=== PATIENT | female | born 1960 | race Caucasian/White ===

== ENCOUNTER 2021-04-11 10:35 | Inpatient (IN) | payer OTHER ==
[2021-04-11] VITALS (315 sets, daily range): BP systolic 119; BP diastolic 72–92; PULSE 107–114; TEMP 98.2–98.4; O2SAT 93–100
[~2021-04-11] VITALS: Ht 160 cm; Wt 53.3 kg
[~2021-04-11 10:35] MED LIST: ACETAMINOPHEN W1 TA6 PO; CLARITIN10 MG PO
[2021-04-11 11:14] LABS: BASO # 0.1 (0.0-0.2); BASO % 0.6 % (0.0-2.0); EOS # 0.1 (0.0-0.7); EOS % 0.4 % (0-4.0); GRAN # 15.3 (1.4-6.5); HEMOGLOBIN 10.2 g/dl (12.5-16.0); MEAN CELL VOLUME 96 fl (80.0-100.0); MEAN CORPUSCULAR HEMOGLOBIN 32 pg (27.0-31.0); MEAN CORPUSCULAR HGB CONC 33 g/dl (33.0-37.0); MEAN PLATELET VOLUME 10.3 fl (7.4-10.4); MONO # 1.2 (0.1-0.6); PLATELET COUNT 358 K/mm3 (130-400); RED BLOOD COUNT 3.22 M/mm3 (4.10-5.30); REDCELL DISTRIBUTION WIDTH-CV 12.7 % (11.5-14.5)
[2021-04-11 11:15] LABS: HEMATOCRIT 30.8 % (37.0-47.0)
[2021-04-11 11:26] LABS: ALANINE AMINOTRANSFERASE 16 U/L (4-34); ALBUMIN 3.9 gm/dL (3.5-5.0); ALKALINE PHOSPHATASE 61 U/L (50-136); ANION GAP 8 mmol/L (7-16); AST,SGOT 27 U/L (15-37); BILIRUBIN,TOTAL 0.5 mg/dL (0.0-1.0); BLOOD UREA NITROGEN 43 mg/dL (7-17); CALCIUM 8.4 mg/dL (8.4-10.2); CARBON DIOXIDE 21 mmol/L (22-30); CHLORIDE 105 mmol/L (98-107); GLUCOSE 160 mg/dL (74-106); LIPASE 63 U/L (23-300); POTASSIUM 4.1 mmol/L (3.4-5.0); SODIUM 134 mmol/L (137-145); TOTAL PROTEIN 6.7 gm/dL (6.4-8.2)
[2021-04-11 11:29] LABS: C-REACTIVE PROTEIN < 0.5 mg/dL (0.0-0.9)
--- NOTE | 2021-04-11 14:05 | NUR ---
RECEIVED REPORT FROM HAIM CHE IN ER. AWAITING ARRIVAL OF PT TO ICU 6.
--- NOTE | 2021-04-11 14:15 | NUR ---
PT ARRIVES TO ICU 6 VIA STRETCHER ON RA. PT AMBULATES SELF TO ICU BED WITHOUT DIFFICULTIES. PLACED ON BEDSIDE CONTINUOUS MONTIOR. VSS. CALL LIGHT WITHIN REACH. FAMILY BROUGHT TO BEDSIDE.
[2021-04-11] MEDS ORDERED: ENDOMETRIN100 MG VG (14:29)
[2021-04-11] MEDS ORDERED: PREMARIN 225 MG/VIAL IJ (14:29)
[2021-04-11] MEDS ORDERED: CYANOCOBAL1000 MCG/M IM (14:31)
[2021-04-11] MEDS ORDERED: ALLERPLEX PO (14:33)
[2021-04-11 18:15] LABS: HEMATOCRIT 23.5 % (37.0-47.0); HEMOGLOBIN 7.6 g/dl (12.5-16.0)
--- NOTE | 2021-04-11 18:27 | NUR ---
NOTIFIED JERICHO NAIR ABOUT PT'S HGB 7.6 NOW. VSS AND PT'S DENIES DIZZINESS AT THIS TIME. PROVIDER REQUESTS H&H REDRAW AT 2200 TONIGHT.
[2021-04-11 18:39] LABS: COLLECTION METHOD CLEAN CATCH
[2021-04-11 18:45] LABS: MUCOUS Present /lpf; PH 5 (5-8); SQUAMOUS EPITHELIAL 0-2 /hpf; URINE APPEARANCE Clear; URINE BACTERIA None Seen /hpf; URINE BILIRUBIN Negative (NEGATIVE); URINE BLOOD Negative (NEGATIVE); URINE COLOR Straw; URINE GLUCOSE Negative (NEGATIVE); URINE KETONE Negative (NEGATIVE); URINE LEUKOCYTE ESTERASE Negative (NEGATIVE); URINE NITRATE Negative (NEGATIVE); URINE PROTEIN(semi-quant) Negative (NEGATIVE); URINE RBC 0-2 /hpf; URINE UROBILINOGEN Negative (NEGATIVE)
--- NOTE | 2021-04-11 19:39 | NUR ---
Received report from HAIM Salazar. All medications verified and all questions answered. Patient resting in bed visiting with daughter and at bedside. VSS. No concerns or complaints noted from patient at this time. Will resume care at this time.
[2021-04-11 22:47] LABS: HEMOGLOBIN 7.5 g/dl (12.5-16.0)
[2021-04-12] VITALS (359 sets, daily range): BP systolic 105–135; BP diastolic 54–75; PULSE 93–110; TEMP 98–98.5; O2SAT 84–100
[2021-04-12 04:00] LABS: BASO # 0.1 (0.0-0.2); BASO % 0.5 % (0.0-2.0); EOS # 0.1 (0.0-0.7); EOS % 0.8 % (0-4.0); GRAN # 10.5 (1.4-6.5); GRAN % 79.9 % (42.2-75.2); LYMPH # 1.6 (1.2-3.4); LYMPH % 12.3 % (20.0-51.0); MEAN CELL VOLUME 96 fl (80.0-100.0); MEAN CORPUSCULAR HGB CONC 33 g/dl (33.0-37.0); MEAN PLATELET VOLUME 9.8 fl (7.4-10.4); MONO # 0.8 (0.1-0.6); RED BLOOD COUNT 2.24 M/mm3 (4.10-5.30); REDCELL DISTRIBUTION WIDTH-CV 12.8 % (11.5-14.5)
[2021-04-12 04:01] LABS: HEMATOCRIT 21.5 % (37.0-47.0); HEMOGLOBIN 7.1 g/dl (12.5-16.0); MEAN CORPUSCULAR HEMOGLOBIN 32 pg (27.0-31.0)
[2021-04-12 04:04] LABS: PLATELET COUNT 238 K/mm3 (130-400)
[2021-04-12 04:13] LABS: CALCIUM 7.9 mg/dL (8.4-10.2); CREATININE, serum 0.64 (0.52-1.25); MAGNESIUM 1.6 mg/dL (1.6-2.3); POTASSIUM 3.5 mmol/L (3.4-5.0)
--- NOTE | 2021-04-12 07:05 | NUR ---
RECEIVED REPORT FROM HAIM COATES. PT RESTING EASILY ON RA. VSS. CALL LIGHT WITHIN REACH.
[2021-04-12 08:53] LABS: HEMATOCRIT 22.4 % (37.0-47.0); HEMOGLOBIN 7.4 g/dl (12.5-16.0)
--- NOTE | 2021-04-12 10:58 | NUR ---
Water Supervisor attended clinical rounds with the team. The patient's daughter, Missy present. Following rounds, SW completed intake. The patient lives in [place] with her , Gerard. The patient denies DME use and is independent. The patient's PCP is Dr. Avitia and patient receives medications from [facility] pharmacy. The patient does not have advanced directives in the EMR but states they are complete and designate Gerard. The patient plans to return home at discharge with no concerns about doing so. *Discharge disposition: Home
--- NOTE | 2021-04-12 12:15 | NUR ---
PT TO EGD AT 1130. REPORT RECEIVED FROM HAIM SKY IN ENDO. PT ARRIVES BACK TO ICU 6 VIA STRETCHER AT 1215. AMBULATES SELF BACK TO ICU BED. VSS. FAMILY AT BEDSIDE. NOTIFIED DR PRO OF FINDINGS. STATES WILL PLACE DIET AND TRANSFER ORDERS.
--- NOTE | 2021-04-12 13:24 | NUR ---
Initial visit; Patient thanked Display And Banner Designer for looking in on her, visiting and offering God's blessings.
--- NOTE | 2021-04-12 14:10 | NUR ---
REPORT GIVEN TO HAIM MASON. PT TO TRANSFER VIA TO [facility]. ALL PERSONAL BELONGINGS SENT WITH PT.S
[2021-04-12 18:27] LABS: HEMATOCRIT 23.3 % (37.0-47.0); HEMOGLOBIN 7.6 g/dl (12.5-16.0)
--- NOTE | 2021-04-12 19:02 | NUR ---
Received report from Elan. Patient awake in bed. Daughter at bedside. Patient informed of latest hemoglobin. Denies needs at this time.
[2021-04-13 04:05] VITALS: BP 124/68; PULSE 91; TEMP 98.1
--- NOTE | 2021-04-13 06:19 | NUR ---
Patient had uneventful night. She was asleep most of the night. She denies pain.
[2021-04-13 06:33] LABS: BASO % 0.4 % (0.0-2.0); EOS # 0.2 (0.0-0.7); EOS % 2.3 % (0-4.0); GRAN # 8.2 (1.4-6.5); GRAN % 78.9 % (42.2-75.2); LYMPH # 1.1 (1.2-3.4); LYMPH % 10.4 % (20.0-51.0); MEAN CELL VOLUME 99 fl (80.0-100.0); MEAN CORPUSCULAR HGB CONC 32 g/dl (33.0-37.0); MEAN PLATELET VOLUME 10.5 fl (7.4-10.4); MONO # 0.8 (0.1-0.6); MONO % 7.4 % (1.7-9.3); PLATELET COUNT 246 K/mm3 (130-400)
[2021-04-13 06:38] LABS: HEMATOCRIT 20.7 % (37.0-47.0); HEMOGLOBIN 6.7 g/dl (12.5-16.0); MEAN CORPUSCULAR HEMOGLOBIN 32 pg (27.0-31.0)
[2021-04-13 06:51] LABS: CALCIUM 7.9 mg/dL (8.4-10.2); CREATININE, serum 0.58 (0.52-1.25); MAGNESIUM 1.7 mg/dL (1.6-2.3); POTASSIUM 3.7 mmol/L (3.4-5.0)
--- NOTE | 2021-04-13 07:00 | NUR ---
PT LAYING IN BE SLEEPING AT THIS TIME. PT DOES HAVE A C/O HEADACHE. DISCUSSED WITH PROVIDER ABOUT PT'S HOME MEDS BEING HELD. NO FURTHER CONCERNS AT THIS TIME. WILL CONTINUE TO MONITOR. CALL LIGHT WITHIN REACH.
[2021-04-13] MEDS ORDERED: TYLENOL W/COD1 UDTAB PO (08:29)
[2021-04-13 09:01] VITALS: BP 102/81; PULSE 91; TEMP 98.3
[2021-04-13 11:01] VITALS: BP 134/69; PULSE 95; TEMP 98.1
[2021-04-13 11:16] VITALS: BP 141/73; PULSE 95; TEMP 98.2
[2021-04-13 15:29] LABS: HEMATOCRIT 25.7 % (37.0-47.0); HEMOGLOBIN 8.3 g/dl (12.5-16.0)
[2021-04-13 16:15] VITALS: BP 130/63; PULSE 103; TEMP 98.8
--- NOTE | 2021-04-13 19:19 | NUR ---
PT HAD UNEVENTFUL DAY. BLOOD WAS GIVEN AND HGB IMPROVED TO 8.3. WILL CONTINUE TO MONITOR. REPORT GIVEN TO HAIM BADILLO.
--- NOTE | 2021-04-13 19:20 | NUR ---
Received report from Shereen. Patient awake in bed. She reports having headache. Will give Tylenol #3.
[2021-04-13 19:38] VITALS: BP 147/74; PULSE 101; TEMP 98.4
[2021-04-14 00:45] VITALS: BP 124/67; PULSE 88; TEMP 97.8
[2021-04-14 03:54] VITALS: BP 133/71; PULSE 87; TEMP 98.7
--- NOTE | 2021-04-14 06:49 | NUR ---
Patient had uneventful night. She denies pain. No episodes of stools.
[2021-04-14 06:54] LABS: BASO # 0.1 (0.0-0.2); BASO % 0.6 % (0.0-2.0); EOS # 0.3 (0.0-0.7); EOS % 2.5 % (0-4.0); GRAN # 9.5 (1.4-6.5); GRAN % 77.7 % (42.2-75.2); HEMATOCRIT 25.5 % (37.0-47.0); HEMOGLOBIN 8.4 g/dl (12.5-16.0); LYMPH # 1.3 (1.2-3.4); LYMPH % 10.7 % (20.0-51.0); MEAN CORPUSCULAR HEMOGLOBIN 31 pg (27.0-31.0); MEAN CORPUSCULAR HGB CONC 33 g/dl (33.0-37.0); MEAN PLATELET VOLUME 10.5 fl (7.4-10.4); MONO # 0.9 (0.1-0.6); MONO % 7.7 % (1.7-9.3); PLATELET COUNT 296 K/mm3 (130-400); RED BLOOD COUNT 2.74 M/mm3 (4.10-5.30); REDCELL DISTRIBUTION WIDTH-CV 15.9 % (11.5-14.5)
[2021-04-14 06:55] LABS: MEAN CELL VOLUME 93 fl (80.0-100.0)
[2021-04-14 07:17] LABS: CALCIUM 8.2 mg/dL (8.4-10.2); POTASSIUM 3.9 mmol/L (3.4-5.0)
[2021-04-14 07:32] LABS: CREATININE, serum 0.57 (0.52-1.25)
[2021-04-14 07:45] VITALS: BP 129/73; PULSE 91; TEMP 98.2
[2021-04-14] MEDS ORDERED: FERROUS SU325 MG/TAB PO (07:49)
[2021-04-14] MEDS ORDERED: PROTONIX 40MG T40 MG PO (07:51)
--- NOTE | 2021-04-14 09:46 | NUR ---
Follow-up visit; Patient thanked for looking in on her again today and states she is hopefully going home today. Brineyard Supervisor wished Solange morris.
--- NOTE | 2021-04-14 12:32 | NUR ---
PT DISCHARGED WITHOUT ANY QUESTIONS. NO CONCERNS. WILL FOLLOW UP WITH PROVIDER OUTPAITENT. NO FURTHER CONCERNS.
== END 2021-04-14 11:15 | disposition home or self-care (01) | DRG 378 ==
LOC: COL.ER 10:35 → ICU 13:06 → MEDICAL 04-12 15:13
PROVIDERS: Family Medicine; Internal Medicine Gastroenterology; Physician Assistant; Student in an Organized Health Care Education/Training Program; ADMIT Internal Medicine
PROC: 0DB78ZX Excision of Stomach, Pylorus, Via Natural or Artificial Opening Endoscopic, Diagnostic (ICD-10-PCS; principal; 2021-04-12 11:45)
DX: K25.4 Chronic or unspecified gastric ulcer with hemorrhage (principal); D62 Acute posthemorrhagic anemia; E87.1 Hypo-osmolality and hyponatremia; K52.9 Noninfective gastroenteritis and colitis, unspecified; R55 Syncope and collapse; I95.9 Hypotension, unspecified; Z20.822 Contact with and (suspected) exposure to COVID-19
CPT/HCPCS: 99223-AI; 99232-AI; 99233-AI; 99239; C9113; J0744; J2405; J2704; J3475; J3480; J7120; P9016; Q9967